=== PATIENT | male | born 2005 | race Caucasian/White ===

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

== ENCOUNTER 2025-06-08 00:23 | Emergency (ER) | payer OTHER ==
[~2025-06-08] VITALS: Ht 182.9 cm; Wt 75.8 kg
[2025-06-08] MEDS ORDERED: Lidocaine 4% 1 Patch TOP ONE (03:30)
[2025-06-08 03:51] VITALS: BP 118/74
== END 2025-06-08 03:51 | disposition home or self-care (01) ==
LOC: ER 00:23
DX: M62.830 Muscle spasm of back (principal)
CPT/HCPCS: 99283; A9270